=== PATIENT | female | born 1995 | race Caucasian/White ===

== ENCOUNTER 2020-08-31 18:45 | Emergency (ER) | payer SELFPAY ==
[~2020-08-31] VITALS: Ht 160 cm; Wt 62.4 kg
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
[2020-08-31 20:02] VITALS: BP 109/48
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
[2020-08-31 21:07] LABS: HCG UR SG 1.014 (1.003-1.030)
[2020-08-31 21:10] LABS: MICROSCOPIC AUTO
[2020-08-31 21:23] LABS: AMPHETAMINE SCREEN, URINE Negative (Negative); BARBITURATE SCREEN, URINE Negative (Negative); BENZODIAZEPINE SCREEN, URINE Negative (Negative); CANNABINOID SCREEN, URINE Negative (Negative); COCAINE SCREEN, URINE Positive (Negative); METHADONE SCREEN, URINE Negative (Negative); OPIATE SCREEN, URINE Negative (Negative)
== END 2020-08-31 21:49 | disposition home or self-care (01) ==
LOC: ED 21:06
DX: N30.00 Acute cystitis without hematuria (principal)
CPT/HCPCS: 80307; 81001; 81025; 87077; 87086; 87186; 99283